=== PATIENT | male | born 1990 | race Caucasian/White ===

== ENCOUNTER 2017-02-10 20:46 | Inpatient (IN) | payer BC ==
[~2017-02-10] VITALS: Ht 180.3 cm; Wt 78.0 kg
--- NOTE | 2017-02-10 21:12 | NUR ---
PATIENT RECEIVED FROM [facility] C/O USE OF HAROINE IV IN RIGHT ARM. NO SOB OR PAIN NOTED. PATIENT IS NODDING OFF BUT ABLE TO HOLD CONVERSATION AND KNOWS NAME/ AND LOCATION. WILL CONTINUE TO MONITOR FOR ANY CHANGES.
[2017-02-10] MEDS ORDERED: IV NS 0.9% 1,000 ML BAG IV ONE ×2 (21:30)
--- NOTE | 2017-02-10 21:39 | NUR ---
EKG DONE AT BEDSIDE
[2017-02-10 21:52] LABS: BASOPHILS % (AUTO) 0.3 % (0.0-2.0); EOSINOPHILS # (AUTO) 0.5 /CMM (0.0-0.7); EOSINOPHILS % (AUTO) 5.1 % (0.0-6.0); HEMATOCRIT 43 % (39-51); HEMOGLOBIN 14.1 g/dL (13.5-17.5); LYMPHOCYTES # (AUTO) 2.2 /CMM (0.8-4.8); LYMPHOCYTES % (AUTO) 24.8 % (20.0-44.0); MEAN CORPUSCULAR HEMOGLOBIN 30 PG (26.0-33.0); MEAN CORPUSCULAR HGB CONC 33 g/dl (31.0-36.0); MEAN CORPUSCULAR VOLUME 89 fL (80-96); MONOCYTES # (AUTO) 0.6 /CMM (0.1-1.30); MONOCYTES % (AUTO) 6.5 % (2.0-12.0); NEUTROPHILS # (AUTO) 5.6 /CMM (1.8-8.9); NEUTROPHILS % (AUTO) 63.3 % (43.0-81.0); PLATELET COUNT (AUTO) 206 /CMM (150-450); RDW COEFFICIENT OF VARIATION 12.8 (11.5-15.0); RED BLOOD CELL COUNT(AUTO) 4.78 MIL/uL (4.5-6.0); WHITE BLOOD COUNT (AUTO) 8.8 K/uL (4.3-11.0)
[2017-02-10 22:12] LABS: CALCIUM, SERUM 9.4 mg/dL (8.5-10.1); CARBON DIOXIDE 31 mmol/L (21-32); CHLORIDE 101 mmol/L (98-107); CREATININE 1.3 mg/dL (0.6-1.3); GLUCOSE 119 mg/dL (74-106); POTASSIUM 4.4 mmol/L (3.5-5.1); SODIUM SERUM 137 mmol/L (136-145); UREA NITROGEN, BLOOD 16 mg/dL (7-18)
[2017-02-10 22:17] LABS: ALANINE AMINOTRANSFERASE 30 U/L (12-78); ALBUMIN 3.8 g/dL (3.4-5.0); ALCOHOL, BLOOD < 3 mg/dL (0-0); ALKALINE PHOSPHATASE 92 U/L (46-116); ASPARTATE AMINOTRANSFERASE 21 U/L (15-37); BILIRUBIN,TOTAL 0.2 mg/dL (0.2-1.0); SALICYLATE 3.6 mg/dL (2.8-20.0); TOTAL PROTEIN, SERUM 7.2 g/dL (6.4-8.2)
[2017-02-10 22:18] LABS: ACETAMINOPHEN 0 ug/ml (10-30)
--- NOTE | 2017-02-10 23:03 | NUR ---
PT SKIN WARM DRY AND TEMP AFEBRILE. IVF INFUSING. WILL CONTINUE TO MONITOR FOR ANY CHANGES.
--- NOTE | 2017-02-10 23:37 | NUR ---
CALLED [employer], CUSHION PADDER WAS PAGED.
--- NOTE | 2017-02-11 00:17 | NUR ---
REPORT GIVEN TO ALESSANDRO
--- NOTE | 2017-02-11 00:24 | NUR ---
TELE/RN NOTES PATIENT IS A NEW [id number] YO MALE WHO WAS BROUGHT TO ER FOR HEROINE OVERDOSE AND ALSO TOOK CLONIDINE. PATIENT LETHARGIC, ABLE TO VERBALIZE NEEDS, COOPERATIVE TO CARE. RESPIRATIONS EVEN AND UNLABORED, PROVIDED WARM BLANKET, BELONGINGS INVENTORIED, ON TELE MONITORING, RIGHT HAND IV GAUGE 18, PATENT, , ROOM ORIENTATION PROVIDED, REPORTED ONLY TAKINE CLONIDINE FOR HYPERTENSION. , CALL LIGHTS WITHIN REACH. BED IN LOCK POSIITON. GARCIA TO GIVE ORDER.
[2017-02-11 01:00] VITALS: BP 117/76
[2017-02-11] MEDS ORDERED: IV NS 0.9% 1,000 ML IV PRN (01:17)
[2017-02-11] MEDS ORDERED: ONDANSETRON HCL/PF 4 MG/2 ML VIAL IVP PRN (01:30)
[2017-02-11] MEDS ORDERED: MAGNESIUM HYDROXIDE 30 ML UDC PO PRN (01:30)
[2017-02-11] MEDS ORDERED: ACETAMINOPHEN 325 MG TABLET PO PRN (01:30)
[2017-02-11] MEDS ORDERED: MAG HYDROX/AL HYDROX/SIMETH 30 ML UDC PO PRN (01:30)
[2017-02-11] MEDS ORDERED: IBUPROFEN 600 MG TABLET PO PRN (01:30)
--- NOTE | 2017-02-11 06:11 | NUR ---
ms/rn notes patient belongings check and ER confirmed no cellphone received upon admission, EMT verified and informed no cellphone
--- NOTE | 2017-02-11 06:26 | NUR ---
320-1 On tele reading at Sinus rhtym at 94 a\. alert, oriented x2 ablt o , able to respond with a nod but weak and lethargic.belongings check. bed alarm on. Respirations even and unlabored. will continue to monitor and endorse to am rn for desmond. Iv on right hand, patency check with iv ns running at 75 ml per hour able to sleep during the night. call lights within reach and bed in lock position.
[2017-02-11 07:43] LABS: BASOPHILS % (AUTO) 0.2 % (0.0-2.0); EOSINOPHILS # (AUTO) 0.4 /CMM (0.0-0.7); EOSINOPHILS % (AUTO) 5.1 % (0.0-6.0); HEMATOCRIT 43 % (39-51); HEMOGLOBIN 14.5 g/dL (13.5-17.5); LYMPHOCYTES # (AUTO) 1.7 /CMM (0.8-4.8); LYMPHOCYTES % (AUTO) 23.9 % (20.0-44.0); MEAN CORPUSCULAR HEMOGLOBIN 30 PG (26.0-33.0); MEAN CORPUSCULAR HGB CONC 34 g/dl (31.0-36.0); MEAN CORPUSCULAR VOLUME 88 fL (80-96); MONOCYTES # (AUTO) 0.5 /CMM (0.1-1.30); MONOCYTES % (AUTO) 7.2 % (2.0-12.0); NEUTROPHILS # (AUTO) 4.5 /CMM (1.8-8.9); NEUTROPHILS % (AUTO) 63.6 % (43.0-81.0); PLATELET COUNT (AUTO) 186 /CMM (150-450); RDW COEFFICIENT OF VARIATION 12.9 (11.5-15.0); RED BLOOD CELL COUNT(AUTO) 4.84 MIL/uL (4.5-6.0)
--- NOTE | 2017-02-11 07:48 | NUR ---
MARINE MAMMAL TRAINER OPENING NOTES RECEIVED PATIENT IN STABLE CONDITION. IN NO APPARENT DISTRESS. PATIENT IS ALERT AND RESTING IN BED. BEDSIDE RAILS ARE UP X2. BED IS LOCKED AND LOWERED. CALL LIGHT IS WITHIN REACH. WILL CONTINUE TO MONITOR.
[2017-02-11 07:55] LABS: CALCIUM, SERUM 8.9 mg/dL (8.5-10.1); CREATININE 0.9 mg/dL (0.6-1.3); MAGNESIUM 2.3 mg/dL (1.8-2.4); PHOSPHORUS 4.5 mg/dL (2.5-4.9); POTASSIUM 4.2 mmol/L (3.5-5.1)
[2017-02-11 08:00] VITALS: BP_SYST 107; BP_SYST 131; BP_DIAS 71; BP_DIAS 79
--- NOTE | 2017-02-11 13:33 | NUR ---
THEATER TECHNICIAN NOTES PATIENT DISCHARGED IN STABLE CONDITION. IN NO APPARENT DISTRESS. VITAL SIGNS STABLE. PATIENT WAS ESCORTED OUT OF THE HOSPITAL. [facility] PICKED HIM UP.
== END 2017-02-11 18:30 | disposition home or self-care (01) | DRG 917 ==
LOC: ER 20:48 → TELE 02-11 00:07 → MED 02-11 12:30
DX: T46.5X1A Poisoning by other antihypertensive drugs, accidental (unintentional), initial encounter (principal); G92 Toxic encephalopathy; R00.1 Bradycardia, unspecified; T40.601A Poisoning by unspecified narcotics, accidental (unintentional), initial encounter; I10 Essential (primary) hypertension; T40.1X1A Poisoning by heroin, accidental (unintentional), initial encounter; Y92.009 Unspecified place in unspecified non-institutional (private) residence as the place of occurrence of the external cause; F11.90 Opioid use, unspecified, uncomplicated; F17.200 Nicotine dependence, unspecified, uncomplicated
CPT/HCPCS: 36415; 80048-TC; 80076-TC; 80305; 83735-TC; 84100-TC; 85025-TC; 87081-TC; G0480; J7030